=== PATIENT | female | born 1975 | race Caucasian/White ===

== ENCOUNTER 2024-06-17 11:39 | Emergency (ER) | payer OTHER ==
[~2024-06-17] VITALS: Ht 154.9 cm; Wt 66.2 kg
[2024-06-17 13:05] VITALS: BP 150/95
== END 2024-06-17 13:05 | disposition home or self-care (01) ==
LOC: ED 11:39
DX: L30.9 Dermatitis, unspecified (principal); I10 Essential (primary) hypertension; Z91.030 Bee allergy status; Z88.5 Allergy status to narcotic agent; Z79.82 Long term (current) use of aspirin; Z79.899 Other long term (current) drug therapy
CPT/HCPCS: 99282